=== PATIENT | male | born 1975 | race Caucasian/White ===

== ENCOUNTER 2016-08-09 04:00 | Emergency (ER) | payer BC ==
[~2016-08-09] VITALS: Ht 177.8 cm; Wt 99.3 kg
[~2016-08-09 04:00] MED LIST: ALBU8.5H INH; ATOR20TA59 PO; BIOT10TA PO; HYDR12.54 PO; LOSA50TA52 PO; MULT-933 PO; [UNRECOGNIZED DRUG - CODE] PO
[2016-08-09 04:05] VITALS: Ht 177.8 cm; Wt 99.3 kg
--- OUTSIDE RECORDS SUMMARY | 2016-08-09 04:07 | XMS REPORT | Continuity of Care Document ---
Author Author [facility] Organization [facility] Address Unknown Phone Unavailable Support Name Relationship Address Phone CLEVE DANIEL MD Caregiver [facility] [address] [place] [address] Unavailable BRICE CHOWDHURY MD Caregiver [address] [place] [address] [address] [place], [place] [phone] JOSE DE JESUS ARMSTRONG Next Of Kin [place], [place] [id number] CP Insurance Providers Payer Name Policy Number Subscriber Name Relationship Auto A Insurance Lamin Armstrong 18 Self [facility]m [facility] [id number] Lamin Armstrong 18 Self Problems Medical Problems Problem Onset Date Status Nailbed injury Unknown Active Fracture of fifth finger, distal phalanx, left, open Unknown Active Nailbed injury Unknown Active Medications Medication Dose Route Sig Days/Qty Instructions Order Date Discontinued Date Status Oxycodone HCl/Acetaminophen 5 Mg PO EVERY 4-6 HOURS PRN PAIN 10 Qty Take 1 tablet, by mouth, every 4 hours as needed for pain. 01/07/14 Active Cephalexin 1 Cap PO THREE TIMES A DAY 30 Qty 01/07/14 Active Social History Social History Problem Response Recorded Date/Time Smoking Status Current every day smoker 01/07/2014 5:45pm Hospital Discharge Instructions No hospital discharge instructions. Plan of Care No plan of care. Functional Status Query Response Date Recorded Physical Hygiene Self January 07, 2014 5:45pm Disabilities None January 07, 2014 5:45pm Devices Used None January 07, 2014 5:45pm Dressing Self January 07, 2014 5:45pm Ambulation Self January 07, 2014 5:45pm Diet Self January 07, 2014 5:45pm Mental Status Alert Oriented January 07, 2014 5:45pm Disabilities None January 07, 2014 5:45pm Devices Used None January 07, 2014 5:45pm Physical Hygiene Self January 07, 2014 5:45pm Dressing Self January 07, 2014 5:45pm Ambulation Self January 07, 2014 5:45pm Diet Self January 07, 2014 5:45pm Allergies, Adverse Reactions, Alerts No known allergies. Immunizations Name Given Type Hx Tetanus, Diptheria, Pertussis 2009 Historical Hx Tetanus, Diptheria, Pertussis 2010 Historical Vital Signs Acute Vital Signs Vital Response Date/Time Temperature (Fahrenheit) 97.6 deg F (96.8 - 99.1) Temperature (Calculated Celsius) 36.95110 degrees C (36.0 - 37.3) Pulse Rate (adult) 68 bpm (60 - 100) Respiratory Rate 20 breaths/min (10 - 20) O2 Sat by Pulse Oximetry 98 % (90 - 100) Blood Pressure 143/88 mm Hg Height 5 ft 10 in Weight 200 lb Body Mass Index 28.0 kg/m^2 Results Name: LAMIN ARMSTRONG Unit #: [id number] : 1975 Sex: M Loc / Svc: ED DOS: Signed Report #: [id number] DIAGNOSTIC IMAGING REPORT TYPE OF EXAM: FINGERS RIGHT 2 VIEW MIN Dictated By: ENRIQUE HERBERT MD Indication: ITS.REASON: crush injury Comparison: None Findings: Minimally displaced fracture at the small finger distal phalanx. No additional acute fracture or dislocation. Impression: Small finger distal phalanx tuft fracture. . Procedures No known history of procedures. Encounters Encounter Location Date/Time Departed Emergency Room [facility] 01/07/14 5:04pm Recent Diagnosis
--- OUTSIDE RECORDS SUMMARY | 2016-08-09 04:07 | XMS REPORT | Referral Summary ---
Author Author [facility] Organization [facility] Address Unknown Phone Unavailable Care Team Providers Care Wood Floor Layer Name Role Phone Zurdo Tee Primary Care Physician [phone] Encounter Date(s): 03/30/15 - 03/30/15 [facility], [address] [place] [id number] Discharge Diagnosis: Costochondritis Discharge Diagnosis: Umbilical hernia Discharge Disposition: 01-Home or Self Care Attending Physician: Esther Gustafson PA-C Admitting Physician: Esther Gustafson PA-C Vital Signs Most recent to 1 oldest [Reference Range]: Blood Pressure 140/98 mmHg [90-140/60-90 mmHg] (03/30/15 8:23 AM) Problem List Condition Effective Dates Status Health Status Informant Allergic Resolved rhinitis(Confirmed) Asthma(Confirmed) Resolved Bronchitis(Confirmed Resolved ) Cat bite of Active hand(Confirmed) Chicken Resolved pox(Confirmed) Hypertension(Confirm Resolved ed) IBS (irritable bowel Resolved syndrome)(Confirmed) STD (sexually Resolved transmitted disease)(Confirmed) Allergies, Adverse Reactions, Alerts Substance Reaction Severity Status naproxen Itching Active Medications fexofenadine 180 mg oral tablet 180 mg 1 tabs, Oral, Daily, # 30 tabs, 0 Refill(s) Start Date: 03/30/15 Status: Ordered predniSONE 20 mg oral tablet 40 mg 2 tabs, Oral, Daily, X 5 days, # 10 tabs, 0 Refill(s), Pharmacy: [id number], 2 tabs Oral Daily,x5 days Start Date: 03/30/15 Stop Date: 04/04/15 Status: Ordered ProAir HFA 90 mcg/inh inhalation aerosol 2 puffs, Inhalation, QID, as needed for wheezing, # 1 Each, 0 Refill(s), Pharmacy: [id number] Start Date: 03/30/15 Status: Ordered Results Hematology Most recent to 1 oldest [Reference Range]: WBC [4.8-10.8 7.2 10*3/uL 10*3/uL] (03/30/15 9:15 AM) RBC [4.60-6.20] 5.03 (03/30/15 9:15 AM) Hgb [14.0-18.0 16.7 gm/dL gm/dL] (03/30/15 9:15 AM) Hct [42.0-52.0 %] 46.3 % (03/30/15 9:15 AM) MCV [82.0-99.0 fL] 92.0 fL (03/30/15 9:15 AM) MCH [27.0-32.0 pg] 33.2 pg *HI* (03/30/15 9:15 AM) MCHC [32.0-36.0 36.1 gm/dL gm/dL] *HI* (03/30/15 9:15 AM) RDW [11.5-14.5 %] 12.3 % (03/30/15 9:15 AM) Platelet [150-400 254 10*3/uL 10*3/uL] (03/30/15 9:15 AM) MPV [8.8-14.8 fL] 10.8 fL (03/30/15 9:15 AM) Immature 0.6 % Granulocytes (03/30/15 9:15 AM) [0.0-1.0 %] Neutrophils [51-75 60 % %] (03/30/15 9:15 AM) Lymphocytes [20-46 28 % %] (03/30/15 9:15 AM) Monocytes [4-11 %] 9 % (03/30/15 9:15 AM) Eosinophils [0-4 %] 2 % (03/30/15 9:15 AM) Basophils [0-2 %] 1 % (03/30/15 9:15 AM) Neutro Absolute 4.32 10*3 [1.90-7.00 10*3] (03/30/15 9:15 AM) Lymph Absolute 2.01 10*3 [0.80-3.30 10*3] (03/30/15 9:15 AM) [facility] Absolute 0.66 10*3 [0.30-1.00 10*3] (03/30/15 9:15 AM) Eos Absolute 0.15 10*3 [0.00-0.50 10*3] (03/30/15 9:15 AM) Baso Absolute 0.04 10*3 [0.00-0.20 10*3] (03/30/15 9:15 AM) Chemistry Most recent to 1 oldest [Reference Range]: Sodium Lvl [135-144 137 mEq/L mEq/L] (03/30/15 9:15 AM) Potassium Lvl 5.0 mEq/L [3.5-5.2 mEq/L] (03/30/15 9:15 AM) Chloride [99-111 102 mEq/L mEq/L] (03/30/15 9:15 AM) CO2 [23-31 mEq/L] 24 mEq/L (03/30/15:15 AM) AGAP [3-20] 11 (03/30/15 9:15 AM) BUN [9-21 mg/dL] 13 mg/dL (03/30/15 9:15 AM) Glucose Lvl [70-99 107 mg/dL mg/dL] *HI* (03/30/15 9:15 AM) Creatinine Lvl 0.86 mg/dL [0.72-1.25 mg/dL] (03/30/15 9:15 AM) eGFR [>60 mL/min] >60 mL/min 1 (03/30/15:15 AM) Calcium Lvl 9.6 mg/dL [8.9-10.5 mg/dL] (03/30/15 9:15 AM) Albumin Lvl [3.5-5.0 4.3 gm/dL gm/dL] (03/30/15 9:15 AM) Total Protein 7.1 gm/dL [6.4-8.3 gm/dL] (03/30/15 9:15 AM) Globulin [1.8-4.0 2.8 gm/dL gm/dL] (03/30/15 9:15 AM) ALT [0-55 U/L] 48 U/L (03/30/15 9:15 AM) AST [5-34 U/L] 28 U/L (03/30/15 9:15 AM) Alk Phos [40-150 73 U/L U/L] (03/30/15 9:15 AM) Bili Total [0.2-1.2 0.8 mg/dL mg/dL] (03/30/15 9:15 AM) Chol [0-199 mg/dL] 246 mg/dL *HI* (03/30/15 9:15 AM) Trig [0-149 mg/dL] 193 mg/dL *HI* (03/30/15 9:15 AM) HDL [40-84 mg/dL] 40 mg/dL (03/30/15 9:15 AM) LDL [0-130 mg/dL] 167 mg/dL *HI* (03/30/15 9:15 AM) VLDL Cholesterol 39 mg/dL [0-28 mg/dL] *HI* (03/30/15 9:15 AM) Cardiac Risk 6.2 [0.0-5.7] *HI* (03/30/15 9:15 AM) HIV 1 and 2 Abs Negative (03/30/15 9:15 AM) 1Result Comment: Multiply eGFR results by 1.21 for race. Immunizations No data available for this section Procedures Procedure Date Related Diagnosis Body Site Collection of venous blood by venipuncture 03/30/15 Social History Social History Type Response Smoking Status Current every day smoker; Type: Cigarettes Assessment and Plan Extracted from: Title: Ambulatory Patient Education Author: Esther Gustafson PA-C Date : 03/30/15 Family Medicine Costochondritis Costochondritis, sometimes called Tietze syndrome, is a swelling and irritation (inflammation) of the tissue (cartilage) that connects your ribs with your breastbone (sternum). It causes pain in the chest and rib area. Costochondritis usually goes away on its own over time. It can take up to 6 weeks or longer to get better, especially if you are unable to limit your activities. CAUSES Some cases of costochondritis have no known cause. Possible causes include: Injury (trauma). Exercise or activity such as lifting. Severe coughing. SIGNS AND SYMPTOMS Pain and tenderness in the chest and rib area. Pain that gets worse when coughing or taking deep breaths. Pain that gets worse with specific movements. DIAGNOSIS Your health care provider will do a physical exam and ask about your symptoms. Chest X-rays or other tests may be done to rule out other problems. TREATMENT Costochondritis usually goes away on its own over time. Your health care provider may prescribe medicine to help relieve pain. HOME CARE INSTRUCTIONS Avoid exhausting physical activity. Try not to strain your ribs during normal activity. This would include any activities using chest, abdominal, and side muscles, especially if heavy weights are used. Apply ice to the affected area for the first 2 days after the pain begins. Put ice in a plastic bag. Place a towel between your skin and the bag. Leave the ice on for 20 minutes, 23 times a day. Only take [id number] or prescription medicines as directed by your health care provider. SEEK MEDICAL CARE IF: You have redness or swelling at the rib joints. These are signs of infection. Your pain does not go away despite rest or medicine. SEEK IMMEDIATE MEDICAL CARE IF: Your pain increases or you are very uncomfortable. You have shortness of breath or difficulty breathing. You cough up blood. You have worse chest pains, sweating, or vomiting. You have a fever or persistent symptoms for more than 23 days. You have a fever and your symptoms suddenly get worse. MAKE SURE YOU: Understand these instructions. Will watch your condition. Will get help right away if you are not doing well or get worse. Document Released: 01/23/2006 Document Revised: 02/03/2014 Document Reviewed: [facility] Patient Information 2015 [facility]. This information is not intended to replace advice given to you by your health care provider. Make sure you discuss any questions you have with your health care provider. Surgery Hernia A hernia occurs when an internal organ pushes out through a weak spot in the abdominal wall. Hernias most commonly occur in the groin and around the navel. Hernias often can be pushed back into place (reduced). Most hernias tend to get worse over time. Some abdominal hernias can get stuck in the opening ( irreducible or incarcerated hernia) and cannot be reduced. An irreducible abdominal hernia which is tightly squeezed into the opening is at risk for impaired blood supply (strangulated hernia). A strangulated hernia is a medical emergency. Because of the risk for an irreducible or strangulated hernia, surgery may be recommended to repair a hernia. CAUSES Heavy lifting. Prolonged coughing. Straining to have a bowel movement. A cut (incision) made during an abdominal surgery. HOME CARE INSTRUCTIONS Bed rest is not required. You may continue your normal activities. Avoid lifting more than 10 pounds (4.5 kg) or straining. Cough gently. If you are a smoker it is best to stop. Even the best hernia repair can break down with the continual strain of coughing. Even if you do not have your hernia repaired, a cough will continue to aggravate the problem. Do not wear anything tight over your hernia. Do not try to keep it in with an outside bandage or truss. These can damage abdominal contents if they are trapped within the hernia sac. Eat a normal diet. Avoid constipation. Straining over long periods of time will increase hernia size and encourage breakdown of repairs. If you cannot do this with diet alone, stool softeners may be used. SEEK IMMEDIATE MEDICAL CARE IF: You have a fever. You develop increasing abdominal pain. You feel nauseous or vomit. Your hernia is stuck outside the abdomen, looks discolored, feels hard, or is tender. You have any changes in your bowel habits or in the hernia that are unusual for you. You have increased pain or swelling around the hernia. You cannot push the hernia back in place by applying gentle pressure while lying down. MAKE SURE YOU: Understand these instructions. Will watch your condition. Will get help right away if you are not doing well or get worse. Document Released: 04/15/2006 Document Revised: 07/07/2012 Document Reviewed: [employer] Patient Information 2015 [place], [facility]. This information is not intended to replace advice given to you by your health care provider. Make sure you discuss any questions you have with your health care provider. No follow up information was provided. Extracted from: Title: Office Visit Note Author: Esther Gustafson PA-C Date: 03/30/15 Assessment/Plan Costochondritis Will try some Prednisone to help with this. If pain returns and/or continues, RTC for further evaluation. Ordered: Office Visit Level 4 Est 00027 Cough Refilled albuterol inhaler. Advised to quit smoking. He may continue taking Mucinex and push fluids. Ordered: Comprehensive Metabolic Panel Office Visit Level 4 Est 69336 Lipid screening Will check lipids today. Ordered: Lipid Panel Office Visit Level 4 Est 90089 Screening for HIV (human immunodeficiency virus) Will check HIV status per pt request. Ordered: HIV Antigen/Antibody Umbilical hernia This is very small and not causing discomfort. Pt would still like to be referred to evaluation for surgery. Will set up. Pt advised that he may want further imaging. Pt was agreeable. Ordered: Office Visit Level 4 Est 18997 Orders: albuterol, 2 puffs, Inhalation, QID, as needed for wheezing, # 1 Each , 0 Refill(s), Pharmacy: [facility] [id number] predniSONE, 40 mg 2 tabs, Oral, Daily, X 5 days, # 10 tabs, 0 Refill(s), Pharmacy: [facility] [id number], 2 tabs Oral Daily,x5 days
--- OUTSIDE RECORDS SUMMARY | 2016-08-09 04:07 | XMS REPORT | Referral Summary ---
Author Author [facility] Organization [facility] Address Unknown Phone Unavailable Care Team Providers Care Glucose And Syrup Weigher Name Role Phone Zurdo Tee Primary Care Physician [phone] Encounter VC Date(s): 02/09/16 - 02/09/16 [facility] [address] [place] [id number] Discharge Diagnosis: Hypertension Discharge Diagnosis: Elevated blood sugar Discharge Diagnosis: Acute sinusitis Discharge Diagnosis: Hyperlipidemia Discharge Disposition: 01-Home or Self Care Attending Physician: Esther Gustafson PA-C Admitting Physician: Esther Gustafson PA-C Vital Signs Most recent to 1 oldest [Reference Range]: Peripheral Pulse 78 bpm Rate [60-100 bpm] (02/09/16 4:08 PM) Respiratory Rate 18 br/min [14-20 br/min] (02/09/16 4:08 PM) Blood Pressure 122/72 mmHg [90-140/60-90 mmHg] (02/09/16 4:08 PM) Problem List Condition Effective Dates Status Health Status Informant Allergic Resolved rhinitis(Confirmed) Asthma(Confirmed) Resolved Bronchitis(Confirmed Resolved ) Cat bite of Active hand(Confirmed) Chicken Resolved pox(Confirmed) Disorder of skeletal Active muscle(Confirmed) Hyperlipidemia(Confi Active rmed) Hypertension(Confirm Resolved ed) IBS (irritable bowel Resolved syndrome)(Confirmed) Obesity(Confirmed) Active patient STD (sexually Resolved transmitted disease)(Confirmed) Allergies, Adverse Reactions, Alerts Substance Reaction Severity Status naproxen Itching Active Medications atorvastatin 20 mg oral tablet See Instructions, TAKE 1 TABLET BY MOUTH DAILY, # 90 tabs, 0 Refill(s), Pharmacy : [id number], TAKE 1 TABLET BY MOUTH DAILY Start Date: 01/31/16 Status: Ordered biotin 0 Refill(s) Start Date: 05/25/15 Status: Ordered hydrochlorothiazide 12.5 mg oral tablet 12.5 mg 1 tabs, Oral, Daily, # 90 tabs, 0 Refill(s), Pharmacy: [facility] [address], 1 tabs Oral Daily Start Date: 01/31/16 Status: Ordered losartan 50 mg oral tablet 50 mg 1 tabs, Oral, Daily, # 90 tabs, 0 Refill(s), Pharmacy: [facility] [id number], 1 tabs Oral Daily Start Date: 01/31/16 Status: Ordered ProAir HFA 90 mcg/inh inhalation aerosol 2 puffs, Inhalation, QID, as needed for wheezing, # 1 Each, 0 Refill(s), Pharmacy: [id number] Start Date: 05/03/15 Status: Ordered Zithromax Z-Chaz 250 mg oral tablet 1 packets, Oral, Daily, as directed on package labeling, X 5 days, # 6 tabs, 0 Refill(s), Pharmacy: [facility] [id number], 1 packets Oral Daily,x5 days, Instr:as directed on package labeling Start Date: 02/09/16 Stop Date: 02/14/16 Status: Ordered Results Hematology Most recent to 1 oldest [Reference Range]: WBC [4.8-10.8 7.6 10*3/uL 10*3/uL] (02/09/16 4:43 PM) RBC [4.60-6.20] 4.58 *LOW* (02/09/16 4:43 PM) Hgb [14.0-18.0 14.9 gm/dL gm/dL] (02/09/16 4:43 PM) Hct [42.0-52.0 %] 42.1 % (02/09/16 4:43 PM) MCV [82.0-99.0 fL] 91.9 fL (02/09/16 4:43 PM) MCH [27.0-32.0 pg] 32.5 pg *HI* (02/09/16 4:43 PM) MCHC [32.0-36.0 35.4 gm/dL gm/dL] (02/09/16 4:43 PM) RDW [11.5-14.5 %] 11.6 % (02/09/16 4:43 PM) Platelet [150-400 259 10*3/uL 10*3/uL] (02/09/16 4:43 PM) MPV [8.8-14.8 fL] 10.9 fL (02/09/16 4:43 PM) Immature 0.4 % Granulocytes (02/09/16 4:43 PM) [0.0-1.0 %] Neutrophils [51-75 53 % %] (02/09/16 4:43 PM) Lymphocytes [20-46 29 % %] (02/09/16 4:43 PM) Monocytes [4-11 %] 15 % *HI* (02/09/16 4:43 PM) Eosinophils [0-4 %] 3 % (02/09/16 4:43 PM) Basophils [0-2 %] 1 % (02/09/16 4:43 PM) Neutro Absolute 3.97 10*3 [1.90-7.00 10*3] (02/09/16 4:43 PM) Lymph Absolute 2.17 10*3 [0.80-3.30 10*3] (02/09/16 4:43 PM) [place] Absolute 1.11 10*3 [0.30-1.00 10*3] *HI* (02/09/16 4:43 PM) Eos Absolute 0.23 10*3 [0.00-0.50 10*3] (02/09/16 4:43 PM) Baso Absolute 0.04 10*3 [0.00-0.20 10*3] (02/09/16 4:43 PM) Chemistry Most recent to 1 oldest [Reference Range]: Sodium Lvl [135-144 138 mEq/L mEq/L] (02/09/16 4:43 PM) Potassium Lvl 4.0 mEq/L [3.5-5.2 mEq/L] (02/09/16 4:43 PM) Chloride [99-111 103 mEq/L mEq/L] (02/09/16 4:43 PM) CO2 [23-31 mEq/L] 26 mEq/L (02/09/16 4:43 PM) AGAP [3-20] 9 (02/09/16 4:43 PM) BUN [9-21 mg/dL] 12 mg/dL (02/09/16 4:43 PM) Glucose Lvl [70-99 79 mg/dL mg/dL] (02/09/16 4:43 PM) Creatinine Lvl 0.97 mg/dL [0.72-1.25 mg/dL] (02/09/16 4:43 PM) eGFR [>60 mL/min] >60 mL/min 1 (02/09/16 4:43 PM) Calcium Lvl 9.3 mg/dL [8.9-10.5 mg/dL] (02/09/16 4:43 PM) Albumin Lvl [3.5-5.0 4.3 gm/dL gm/dL] (02/09/16 4:43 PM) Total Protein 6.7 gm/dL [6.1-7.7 gm/dL] (02/09/16 4:43 PM) Globulin [1.8-4.0 2.4 gm/dL gm/dL] (02/09/16 4:43 PM) ALT [0-55 U/L] 46 U/L (02/09/16 4:43 PM) AST [5-34 U/L] 26 U/L (02/09/16 4:43 PM) Alk Phos [40-150 75 U/L U/L] (02/09/16 4:43 PM) Bili Total [0.2-1.2 0.5 mg/dL mg/dL] (02/09/16 4:43 PM) Chol [0-199 mg/dL] 160 mg/dL (02/09/16 4:43 PM) Trig [0-149 mg/dL] 322 mg/dL *HI* (02/09/16 4:43 PM) HDL [40-84 mg/dL] 35 mg/dL *LOW* (02/09/16 4:43 PM) LDL [0-130 mg/dL] 61 mg/dL (02/09/16 4:43 PM) VLDL Cholesterol 64 mg/dL [0-28 mg/dL] *HI* (02/09/16 4:43 PM) Cardiac Risk 4.6 [0.0-5.7] (02/09/16 4:43 PM) Hgb A1c [4.1-5.6 %] 5.0 % (02/09/16 4:43 PM) eAvg Glucose 96.8 mg/dL (02/09/16 4:43 PM) 1Result Comment: Multiply eGFR results by 1.21 for race. Immunizations Vaccine Date Refusal Reason influenza virus vaccine, inactivated1 01/29/16 [facility] Procedure Date Related Diagnosis Body Site None Social History Social History Type Response Smoking Status Current every day smoker; Type: Cigarettes; Tobacco use per day: Pack Assessment and Plan Extracted from: Title: Office Visit Note- URI, labs Author: Esther Gustafson PA-C Date : 02/09/16 Assessment/Plan Acute sinusitis Since he is planning on having a procedure done soon, will tx with Z-chaz at this time. Push fluids. Call or RTC if not improving. I also d/w pt that if he is still with sx, he needs to call Dr. Haider's office a few days before his procedure to see if they want to reschedule. Ordered: azithromycin, 1 packets, Oral, Daily, as directed on package labeling, X 5 days , # 6 tabs, 0 Refill(s), Pharmacy: [facility], 1 packets Oral Daily,x5 days,Instr:as directed on package labeling CBC w/ Differential Office Visit Level 4 Est 23126 Elevated blood sugar D/w pt thata fasting sugar of 126 would be diabetic level. He is not fasting today, but will check random BGand A1C. Ordered: Comprehensive Metabolic Panel Hemoglobin A1c Office Visit Level 4 Est 32054 Hyperlipidemia Recheck lipids today. He is on Lipitor 20mg daily. He is not fasting. Ordered: Lipid Panel Office Visit Level 4 Est 12185 Hypertension BP is stable at this time. Checklabs. Ordered: Comprehensive Metabolic Panel Office Visit Level 4 Est 64497
--- OUTSIDE RECORDS SUMMARY | 2016-08-09 04:07 | XMS REPORT | Continuity of Care Document ---
Author Author [facility] Organization [facility] Address Unknown Phone Unavailable Support Name Relationship Address Phone ODALYS BARKLEY FACS, MD Caregiver [address] [place] [address] [place] [address] Unavailable JADON SANTOYO MD Caregiver [address] [place] [address] [place] [address] Unavailable JOSE DE JESUS CHAMORRO Next Of Kin [place], [place] [id number] Insurance Providers Guarantor Lamin Armstrong Address [address] [place] [address] CP Email [email or web address] Payer [facility] Policy Number [id number] Subscriber's Name Lamin Armstrong Relationship 18 Self Group Number [id number] Advance Directives Directive Response Recorded Date/Time Ordered Resuscitation Status Full Code 02/16/16 1:47pm Resuscitation Documents on File No 02/17/16 9:00am DPOA for Healthcare Only No 02/17/16 9:00am Living Will No 02/17/16 9:00am Problems Active Problems Medical Problem Onset Date Status Acute cervical sprain Unknown Acute Facial contusion Unknown Acute Fracture of fifth finger, distal phalanx, left, open Unknown Acute Nailbed injury Unknown Acute Nailbed injury Unknown Acute Past Problems Medical Problem Onset Date Acute diverticulitis Unknown Perforated abdominal viscus Unknown Medications Current Home Medications Medication Dose Units Route Directions Days Qty Instructions Start Date Albuterol Sulfate (Proair Hfa 90 Mcg/Actuation) 8.5 Gm Hfa.aer.ad 2 Puff Inhalation as needed for Asthma 02/17/16 Atorvastatin Calcium 20 Mg Tablet 1 Tab Oral Daily 02/16/16 Biotin Unknown Strength Tablet 1 Tab Oral Daily 10/07/15 Fexofenadine Hcl (Wal-Fex Allergy) 180 Mg Tablet 180 Mg Oral Daily 03/31/15 Hydrochlorothiazide 12.5 Mg Tablet 1 Tab Oral Daily 02/16/16 Losartan Potassium 50 Mg Tablet 1 Tab Oral Daily 02/16/16 Multivitamin (Multi-Day Vitamins) 1 Each Tablet 1 Tab Oral Daily 10/07/15 Social History Social History Problem Response Recorded Date/Time Onset Date Status Reason for Hospitalization COLONOSCOPY 02/17/2016 12:19pm Not Applicable Not Applicable Chewing Tobacco Status No 02/17/2016 9:05am Not Applicable Not Applicable Hx Substance Use Y HX OF MARIJUANA 02/17/2016 9:05am Not Applicable Not Applicable Hx Alcohol Use Y OCC 02/17/2016 9:05am Not Applicable Not Applicable Has the pt used tobacco in the last 12 months Yes 02/17/2016 9:05am Not Applicable Not Applicable Tobacco Usage smoke 01/12/2014 4:35pm Not Applicable Not Applicable Query Response Start Date Stop Date Smoking Status Light Smoker Hospital Discharge Instructions Instructions: Care Instructions: I was in the hospital because (patient own words): colonoscopy Discharge Diet: As Tolerated Discharge Activity: Do NOT drive today Follow Up Appointments: Follow up with Dr. Barkley as needed. Pending Lab / Results: Will be notified Patient Instructions: If biopsies performed during colonoscopy, results/recommendations will be mailed in about 2-3 weeks. Expected Signs/Symptoms: None Notify Physician If: Call physician if temperature is GREATER than 101.5, severe abdominal pain or severe rectal bleeding. During Business Hours:: Call [phone] After Business Hours:: Call [phone] (hospital) Pain Management/Treatment: Call Dr. Barkley if increasing abdominal pain Wound/Incision Care: N/A Condition at time of discharge: Good Plan of Care Discharge Date 02/17/16 12:41pm Instructions/Education Provided [facility] Prescriptions See Medication Section Functional Status Query Response Date Recorded Ability to complete ADL's impeded by No change February 17, 2016 9:00am Allergies, Adverse Reactions, Alerts Allergen Type Severity Reaction Status Last Updated Naproxen Allergy Unknown Active 10/07/15 Immunizations Query Response on File Recorded Date/Time Hx Influenza Vaccination Y JAN 2016 02/17/16 9:05am Hx Pneumococcal Vaccination No 02/17/16 9:05am Hx Tetanus, Diptheria, Pertussis 200901/07/14 6:20pm Hx Influenza Vaccination Y JAN 2016 02/17/16 9:05am Hx Tetanus, Diptheria, Pertussis 200901/07/14 6:20pm DTaP Vaccine History 201110/07/15 6:58pm Influenza Vaccine Hx NONE 10/07/15 10:15pm Tdap Vaccine Hx 201103/31/15 12:38pm Vital Signs Acute Vital Signs Vital Response Date/Time Temperature (Fahrenheit) 98.2 deg F (96.8 - 99.1) 02/17/2016 12:06pm Temperature (Calculated Celsius) 36.49430 degrees C (36.0 - 37.3) 02/17/2016 12:06pm Temperature Source Temporal 02/17/2016 12:06pm Pulse Rate (adult) 82 bpm (60 - 100) 02/17/2016 12:30pm Respiratory Rate 17 breaths/min (10 - 20) 02/17/2016 12:30pm O2 Sat by Pulse Oximetry 95 % (90 - 100) 02/17/2016 12:30pm Oxygen Delivery Method Room Air 02/17/2016 12:30pm Blood Pressure 161/90 mm Hg 02/17/2016 12:30pm Blood Pressure Source Automatic Cuff 02/17/2016 12:30pm Height (Feet) 5 feet 02/17/2016 8:45am Height (Inches) 10.00 inches 02/17/2016 8:45am Weight (Kilograms) 96.800 kg 02/17/2016 8:45am Body Mass Index (BMI) 30.6 02/17/2016 8:45am Results No known relevant diagnostic tests, laboratory data and/or discharge summary. Procedures Procedure Status Date Provider(s) Colonoscopy Completed 02/17/16 ODALYS BARKLEY MD, FACS, CWS Encounters Encounter Location Arrival/Admit Date Discharge/Depart Date Attending Provider Registered Surgical Day Care [facility] 02/17/16 8:19am ODALYS BARKLEY FACS, MD
--- OUTSIDE RECORDS SUMMARY | 2016-08-09 04:07 | XMS REPORT | Continuity of Care Document ---
Author Author [facility] Organization [facility] Address Unknown Phone Unavailable Allergies Active Description Code Type Severity Reaction Onset Reported/Identified Relationship to Patient Clinical Status Yes naproxen NKMA N/A Itching 08/26/2013 Medications Problems Procedures Results Test Result Range Comprehensive Metabolic Panel (CMP) - 02/09/16 16:43 Albumin 4.3 g/dL 3.5-5.0 Alkaline Phosphatase 75 U/L 40-150 ALT (SGPT) 46 U/L 0-55 Anion Gap 9 NA 3-20 AST (SGOT) 26 U/L 5-34 Bilirubin Total 0.5 mg/dL 0.2-1.2 BUN 12 mg/dL 9-21 Calcium 9.3 mg/dL 8.9-10.5 Chloride 103 mEq/L 99-111 CO2 26 mEq/L 23-31 Creatinine 0.97 mg/dL 0.72-1.25 Globulin 2.4 g/dL 1.8-4.0 Glucose 79 mg/dL 70-99 Potassium 4.0 mEq/L 3.5-5.2 Protein 6.7 g/dL 6.1-7.7 Sodium 138 mEq/L 135-144 Lipid Panel - 02/09/16 16:43 Cardiac Risk 4.6 0.0-5.7 Cholesterol 160 mg/dL 0-199 HDL Cholesterol 35 mg/dL 40-84 LDL Cholesterol 61 mg/dL 0-130 Triglycerides 322 mg/dL 0-149 VLDL Cholesterol 64 mg/dL 0-28 eGFR - 02/09/16 16:43 eGFR >60 mL/min >60 CBC With Platelet and Differential - 02/09/16 16:43 Absolute Basophils 0.04 10*3 0.00-0.20 Absolute Eosinophils 0.23 10*3 0.00-0.50 Absolute Lymphocytes 2.17 10*3 0.80-3.30 Absolute Monocytes 1.11 10*3 0.30-1.00 Absolute Neutrophils 3.97 10*3 1.90-7.00 Basophils 1 % 0-2 Eosinophils 3 % 0-4 HCT 42.1 % 42.0-52.0 HGB 14.9 g/dL 14.0-18.0 Immature Granulocytes 0.4 % 0.0-1.0 Lymphocytes 29 % 20-46 MCH 32.5 pg 27.0-32.0 MCHC 35.4 g/dL 32.0-36.0 MCV 91.9 fL 82.0-99.0 Monocytes 15 % 4-11 MPV 10.9 fL 8.8-14.8 Neutrophils 53 % 51-75 Platelet Count 259 K/uL 150-400 RBC 4.58 10*6/uL 4.60-6.20 RDW 11.6 % 11.5-14.5 WBC 7.6 K/uL 4.8-10.8 Hemoglobin A1C - 02/09/16 16:43 Hemoglobin A1C 5.0 % 4.1-5.6 Estimated Average Glucose - 02/09/16 16:43 Estimated Average Glucose 96.8 mg/dL Encounters ACCT No. Visit Date/Time Discharge Status Pt. Type Provider Facility Loc./Unit Complaint [id number] 07/17/2013 13:19:00 07/17/2013 23 :59:59 CLS Outpatient [id number] 06/19/2013 14:01:00 06/19/2013 23 :59:59 CLS Outpatient [id number] 02/20/2013 10:57:00 02/20/2013 23 :59:59 CLS Outpatient
--- NOTE | 2016-08-09 04:29 | ERPDOC ---
Departure Disposition Decision Date: Aug 09, 2016 Disposition Decision Time: 08:00 (GAVIN VÁSQUEZ DO) Disposition: 01 DISCHARGED HOME, SELF-CARE Impression Impression (RICK DE LUNA DO) Impression: Primary Impression: Laceration of foot Encounter type: initial encounter Laterality: left Qualified Codes: S91.312A - Laceration without foreign body, left foot, initial encounter Severity: Moderate (GAVIN VÁSQUEZ DO) Condition: Improved Seen By: Physician only (GAVIN VÁSQUEZ DO) Referrals: JADON SANTOYO MD (Family) [facility] 2 Days Patient Instructions: Laceration (ED) Problems/Meds/Labs Reviewed?: Yes Medications reviewed and manag: Yes (GAVIN VÁSQUEZ DO) Follow up care ordered?: Yes Mental Status: Alert, Oriented (GAVIN VÁSQUEZ DO) Scripts Oxycodone HCl/Acetaminophen (Percocet 10-325 mg Tablet) 10-325 Tablet 1 TAB PO Q4H Y for PAIN for 2 Days, #12 TAB 0 Refills Take 1 tablet, by mouth, every 4 hours as needed for pain. Prov: GAVIN VÁSQUEZ DO 08/09/16 Cephalexin (Keflex) 500 Mg Capsule 1 CAP PO TID for 10 Days, #30 CAP 0 Refills Prov: GAVIN VÁSQUEZ DO 08/09/16 HPI - Lower Extremity General Chief Complaint: Laceration Stated Complaint: LAC L FOOT Time Seen by Provider: 04:23 Source: patient Exam Limitations: no limitations (RICK DE LUNA DO) Time Seen by Provider: 07:17 (GAVIN VÁSQUEZ DO) HPI - Lower Extremity Initial Comments 41yo man presents to the ER [facility] with a cut to his left foot. Pt was cutting cooked chicken last night, when the knife fell out of his hand and stuck in the dorsum of his left foot. Pt removed the knife, but he had blood spurting from the wound. His was able to get the blood to slow/stop by placing 'butterfly ' bandages over the laceration. Pts foot is exquisitely tender and is bleeding again. Occurred At: home Onset/Timing: Rapid Duration: 6-12 hrs Pain/Severity Scale: Now & Worst: 6/10 Severity: moderate Pain/Injury Location: left foot 1 - Laceration Modifying Factors/Context: IMPROVES WITH: immobilization, WORSE WITH: jarring, movement Hx of Similar Symptoms: No Quality: sharpness Associated Symptoms: laceration () Allergies: Coded Allergies: naproxen (Verified Allergy, Unknown, 08/09/16) Past History Past Medical History Metabolic: hypercholesterolemia, hypertension ENMT: allergies Respiratory: asthma () Surgical History Denies Surgeries () Vaccines Hx Influenza Vaccination: Yes (JAN 2016) Hx Pneumococcal Vaccination: No () Social History Does patient use chewing tobac: No Second Hand Exposure: No Substance Use Type: does not use () Review of Systems Musculoskeletal General: pain, see HPI () Integumentary Comments laceration () All other Systems All Other Systems: Reviewed and Negative () Physical Exam General General Nourishment: well nourished, well developed, appears stated age, no acute distress, adult, obese General Body Habitus: well groomed () Vitals and Pain First Documented Vital Signs Date Time Temp Pulse Resp B/P Pulse Ox O2 Delivery O2 Flow Rate FiO2 08/09/16 04:05 97.2 102 16 135/91 97 Room Air (GAVIN VÁSQUEZ ) Vitals and Pain Weight: Kilograms: Height (feet): 5 Height (inches): 10.00 Triage Pain Scale: () RN VS reviewed by Provider: Yes () Musculoskeletal (brief) Comments 1.5cm laceration over dorsum of left foot as described. Blood is oozing from the wound, between the two bandages. Palpable, fluctuant mass under the skin. Pain with flexion/extension of 5th digit; other digits move without pain. () Integumentary (brief) Integumentary Brief: FOUND: pink, warm Comments 1.5cm laceration over dorsum of left foot as described. Blood is oozing from the wound, between the two bandages. Palpable, fluctuant mass under the skin. Pain with flexion/extension of 5th digit; other digits move without pain. () Supervisory Exam Head: atraumatic Eyes: PERRL Nares: no exudate Neck: trachea midline Chest: symmetric Abdomen: non-distended Neurological: no abnormal movements Psychological: alert () Differential Diagnoses Considering: Cellulitis, Compartment Syndrome, Contusion, Fracture, Laceration , Sprain, Strain, Other (Tendon laceration) () Progress Results/Orders Orders Procedure Category Date Status Time Hydrocodone/Acetaminophen PHA 08/09/16 Complete ([place] 5/325) 04:30 Foot Left 3 Views RAD 08/09/16 Resulted 04:23 Tetanus,Diphth,A PHA 08/09/16 Complete Pertus (Tdap) (Adacel) 07:30 Cefazolin (Kefzol) PHA 08/09/16 Complete 07:30 (GAVIN VÁSQUEZ DO) Medications Current ED Medications Acetaminophen/ Hydrocodone Bitart ([place] 5/325) 1 tab O ONCE PO Last administered on 08/09/16 04:34; Start 08/09/16 at 04:30; Stop 08/09/16 at 04:31 ; Status DC Diphtheria/ Tetanus/Acell Pertussis 0.5 ml 0.5 ml O ONCE IM Last administered on 08/09/16 07:26; Start 08/09/16 at 07:30; Stop 08/09/16 at 07:31; Status DC Cefazolin Sodium/ Sodium Chloride (Kefzol/NS) 100 ml @ 200 mls/hr O ONCE IV Last administered on 08/09/16 07:39; Start 08/09/16 at 07:30; Stop 08/09/16 at 07:59; Status DC (GAVIN VÁSQUEZ DO) Progress Progress Pts bleeding started when he stood up/tried to walk on his foot. After initially being under control, bleeding again became brisk/bright red while manipulated to obtain plain films. Gave pt pain medication and placed pressure dressing. Pt no longer bleeding briskly. Arterial source is likely, but size of wound makes ligation difficult - will likely need wound extension to treat further. () Progress Patient is seen and examined in the emergency department by Dr. Daniels of orthopedic services. Recommendations from orthopedics are obtained and compression dressing and have the patient follow-up in the office on Saturday. Patient is observed in the ED for an extended timeframe without recurrence of bleeding. Patient is to be nonweightbearing. Crutches and education in their use is provided. Patient is provided with a prescription for Keflex and analgesic pain medication. Tetanus status is updated in the ED. Ancef 1g IV is given in the ED. Wound to heal by secondary intention with steri-strips in place. Recommendations are followed. Patient is in agreement with the current plan of management. Patient is discharged home in improved condition. Patient is to follow up as instructed. Patient is to return to the emergency department if his condition worsens or changes in any manner. Patient is to follow-up with Dr. Daniels in 2 days for further evaluation and treatment. Patient has no active bleeding at this time and is distal neurovascular intact to the laceration. Patient is currently finishing an Rx of Augmentin and will complete the prior Rx prior to beginning the Keflex. BP: 140/94. HR: 86 (GAVIN VÁSQUEZ DO) Consult/PCP Consult/PCP : Physician Contacted: Dr. Daniels Time Called: 04:37 Time of first response: 04:54 Type of discussion: Phone Consult/PCP Discussion Details Leave pressure dressing in place; elevate the leg; will present to evaluate pt and determine best treatment. (RICK DE LUNA DO) Xray Xray : Xray: Foot L Interpretation: Normal, Reviewed Written Report (GAVIN VÁSQUEZ DO) RICK DE LUNA DO Aug 09, 2016 04:28 GAVIN VÁSQUEZ DO Aug 09, 2016 08:11
[2016-08-09] MEDS ORDERED: HYDROCODONE/APAP 5 mg/325 mg TABLET PO ONE (04:30)
--- NOTE | 2016-08-09 04:53 | NUR ---
CONSULT DR DE LUNA TALKING TO DR ROSE
--- OUTSIDE RECORDS SUMMARY | 2016-08-09 05:06 | XMS REPORT | Continuity of Care Document ---
Author Author [facility] Organization [facility] Address Unknown Phone Unavailable Support Name Relationship Address Phone CLEVE DANIEL MD Caregiver [facility] [address] [place] [address] Unavailable BRICE CHOWDHURY MD Caregiver [address] [place] [address] [address] [place] [place], [place] [phone] JOSE DE JESUS ARMSTRONG Next Of Kin [place], [place] [id number] CP Insurance Providers Payer Name Policy Number Subscriber Name Relationship Auto A Insurance Lamin Armstrong 18 Self [facility] [id number] Lamin Armstrong 18 Self Problems Medical Problems [...] F (96.8 - 99.1) Temperature (Calculated Celsius) 36.07121 degrees C (36.0 - 37.3) Pulse Rate (adult) 68 bpm (60 - 100) Respiratory Rate 20 breaths/min (10 - 20) O2 Sat by Pulse Oximetry 98 % (90 - 100) Blood Pressure 143/88 mm Hg Height 5 ft 10 in Weight 200 lb Body Mass Index 28.0 kg/m^2 Results Name: LAMIN ARMSTRONG Unit #: [id number] : 1975 Sex: M Loc / Svc: ED DOS: Signed Report #: [id number] DIAGNOSTIC IMAGING REPORT TYPE OF EXAM: FINGERS RIGHT 2 VIEW MIN Dictated By: ENRIQUE HERBERT MD Indication: ITS.REASON: crush injury Comparison: None Findings: Minimally displaced fracture at the small finger distal phalanx. No additional acute fracture or dislocation. Impression: Small finger distal phalanx tuft fracture. . Procedures No known history of procedures. Encounters Encounter Location Date/Time Departed Emergency Room [facility] 01/07/14 5:04pm Recent Diagnosis
--- OUTSIDE RECORDS SUMMARY | 2016-08-09 05:06 | XMS REPORT | Continuity of Care Document ---
Author Author [facility] Organization [facility] Address Unknown Phone Unavailable [...] Status Pt. Type Provider Facility Loc./Unit Complaint [id number] 07/17/2013 13:19:00 07/17/2013 23 :59:59 CLS Outpatient [id number] 06/19/2013 14:01:00 06/19/2013 23 :59:59 CLS Outpatient [id number] 02/20/2013 10:57:00 02/20/2013 23 :59:59 CLS Outpatient
--- NOTE | 2016-08-09 06:00 | NUR ---
ELIMINATION PT TO BR WITHOUT DIFFICULTY
--- NOTE | 2016-08-09 06:25 | NUR ---
STATUS PT RESTING AT THIS TIME WITHOUT COMPLAINTS
--- NOTE | 2016-08-09 07:10 | NUR ---
PROVIDER DR ROSE IN ROOM TO SEE PT
--- NOTE | 2016-08-09 07:20 | NUR ---
ACTIVITY PT SITTING ON EDGE OF BED PER DR NEGRITO WILSON
[2016-08-09] MEDS ORDERED: TETANUS,DIPHTH,a PERTUS (Tdap) 0.5 ML VIAL IM ONE (07:30)
[2016-08-09] MEDS ORDERED: CEFAZOLIN 1 G in NORMAL SALINE 100 ML IV ONE (07:30)
--- NOTE | 2016-08-09 07:40 | NUR ---
MEDICATION CEFAZOLIN 1GM IV INFUSING ORDERED
--- NOTE | 2016-08-09 07:58 | DI ---
Indication: ITS.REASON: Knife vs foot PROCEDURE: FOOT LEFT 3 VIEWS: Encounter: Initial Comparison: None Findings: There is no acute fracture, dislocation or malalignment identified. No radiopaque foreign body identified. Lacerations laterally in the soft tissues. Impression: No acute osseous abnormality. .
--- NOTE | 2016-08-09 08:00 | NUR ---
DRESSING REMOVAL ASSISTED DR. VÁSQUEZ WITH DRESSING REMOVAL. NO ACTIVE BLEEDING AT THIS TIME. DRIED BLOOD GENTLY WASHED OFF OF FOOT.
[2016-08-09] MEDS ORDERED: CEPH-583 PO (08:17)
[2016-08-09] MEDS ORDERED: OXYC1TAB13 PO (08:17)
--- NOTE | 2016-08-09 08:30 | NUR ---
DISMISSAL NOTE DISMISSAL INSTRUCTIONS GIVEN TO PT. HE REQUESTS WORK NOTE AND IT WAS GIVEN. RX FOR CEPHALEXIN AND PERCOCET GIVEN. PT. ASKS IF HE SHOULD TAKE THE CEPHALEXIN AND THE ANTIBIOTIC HE IS ON ALSO. ASKED DR. VÁSQUEZ AND HE ADVISED PT. TO FINISH ANTIBIOTIC HE WAS ON AND THEN START THE CEPHALEXIN.
--- NOTE | 2016-08-09 08:38 | NUR ---
PT PT CALLED AND WILL COME MAKE SURE CRUTCH SIZE IS CORRECT.
--- NOTE | 2016-08-09 08:45 | NUR ---
DISMISSAL PT WAS HERE AND RE-ADJUSTED CRUTCHES. PT. LEFT ED AMBULATORY ON CRUTCHES.
[2016-08-09 08:58] VITALS: BP 144/94; PULSE 84; RESP 20; TEMP 97.2; O2SAT 99
== END 2016-08-09 08:45 | disposition home or self-care (01) ==
LOC: ED 04:00
DX: S91.312A Laceration without foreign body, left foot, initial encounter (principal); W26.0XXA Contact with knife, initial encounter; Y93.G1 Activity, food preparation and clean up; Y92.009 Unspecified place in unspecified non-institutional (private) residence as the place of occurrence of the external cause; Y99.8 Other external cause status
CPT/HCPCS: 73630; 90471; 90715; 96365; 99283; J0690; J7050